=== PATIENT | male | born 1935 | race Caucasian/White ===

== ENCOUNTER → 2016-08-26 | Outpatient (CLI) | payer OTHER, MEDICARE | LOC: BHFA 13:00 | PROVIDERS: ATTEND Internal Medicine Cardiovascular Disease | DX: R07.9 Chest pain, unspecified (principal) | CPT/HCPCS: 78452; 93017; A9500; J2785 ==

== ENCOUNTER 2017-02-04 11:53 | Emergency (ER) | payer OTHER, MEDICARE ==
[2017-02-04 12:02] VITALS: O2SAT 97
--- NOTE | 2017-02-04 12:22 | CPEKG ---
Heart Rate: 61 RR Interval: 984 QRSD Interval: 96 QT Interval: 400 QTC Interval: 403 QRS [place]: 60 T Wave [place]: 39 EKG Severity - ABNORMAL ECG - EKG Impression: PROBABLE LATERAL INFARCT, OLD EKG Impression: Sinus rhythm Electronically Signed By: Justen Lenz 04-Feb-2017 12:55:14
[2017-02-04] MEDS ORDERED: LORazepam 2 MG/ML INJ IVP ONE (13:09)
[2017-02-04] MEDS ORDERED: DEXAMETHASONE 10 MG/ML VIAL IVP ONE (13:09)
[2017-02-04] MEDS ORDERED: ONDANSETRON 4 MG/2 ML VIAL IVP ONE (13:09)
[2017-02-04] MEDS ORDERED: MECLIZINE HCL 25 MG TAB PO ONE (13:10)
[2017-02-04 13:14] LABS: % IMMATURE GRANULYOCYTES 0.4 % (0.0-1.1); ABSOLUTE IMMATURE GRANULOCYTES 0.03 10^3/uL (0.00-0.10); ADD DIFF? NO; ADD MORPH? NO; ADD SCAN? NO; ATYPICAL LYMPHOCYTE FLAG 0 (0-99); FRAGMENT RBC FLAG 0 (0-99); HEMATOCRIT 47.1 % (40.0-51.0); HEMOGLOBIN 15.9 g/dL (13.7-17.5); LEFT SHIFT FLG 0 (0-99); LIPEMIA HEMOLYSIS FLAG 90 (0-99); MEAN CELL HEMOGLOBIN CONCENTR. 33.8 g/dL (32.4-36.7); MEAN CELL VOLUME 85.8 fL (81.5-99.8); MEAN PLATELET VOLUME 9.3 fL (8.7-11.7); PLATELET CLUMPS FLAG 0 (0-99); PLATELET COUNT 225 10^3/uL (150-400); RED BLOOD CELL COUNT 5.49 10^6/uL (4.40-6.38); RED CELL DISTRIBUTION WIDTH 13.3 % (11.5-15.2)
--- NOTE | 2017-02-04 13:14 | EDPHY ---
H & P Stated Complaint: dizzy Time Seen by Provider: 02/04/17 12:50 HPI/ROS: CHIEF COMPLAINT: Vertigo HISTORY OF PRESENT ILLNESS: The patient is a 81-year-old man who comes to the emergency department complaining of vertigo. The patient states that he woke up this morning with significant vertigo and difficulty walking. He states that it is persistent but worsens with head movement. Mild nausea but no vomiting. No fever. He does have some sinus congestion over the last couple of days. No headache. No neck pain. No chest pain. No shortness of breath. No syncope or presyncope. No weakness or deficits. REVIEW OF SYSTEMS: Constitutional: denies: chills, fever, recent illness, recent injury EENTM: denies: blurred vision, double vision, nose congestion Respiratory: denies: cough, shortness of breath Cardiac: denies: chest pain, irregular heart rate, lightheadedness, palpitations Gastrointestinal/Abdominal: denies: abdominal pain, diarrhea, nausea, vomiting, blood streaked stools Genitourinary: denies: dysuria, frequency, hematuria, pain Musculoskeletal: denies: joint pain, muscle pain Skin: denies: lesions, rash, jaundice, bruising Neurological: See HPI denies: headache, numbness, paresthesia, tingling, weakness Hematologic/Lymphatic: denies: blood clots, easy bleeding, easy bruising Immunologic/allergic: denies: HIV/AIDS, transplant EXAM: GENERAL: Well-appearing, well-nourished and in no acute distress. HEAD: Atraumatic, normocephalic. EYES: Pupils equal round and reactive to light, extraocular movements intact, sclera anicteric, conjunctiva are normal. ENT: TMs normal, nares patent, oropharynx clear without exudates. Moist mucous membranes. NECK: Normal range of motion, supple without lymphadenopathy or JVD. LUNGS: Breath sounds clear to auscultation bilaterally and equal. No wheezes rales or rhonchi. HEART: Regular rate and rhythm without murmurs, rubs or gallops. ABDOMEN: Soft, nontender, normoactive bowel sounds. No guarding, no rebound. No masses appreciated. BACK: No CVA tenderness, no spinal tenderness, step-offs or deformities EXTREMITIES: Normal range of motion, no pitting or edema. No clubbing or cyanosis. NEUROLOGICAL: Cranial nerves II through XII grossly intact. Normal speech, gait not assessed. 5/5 strength, normal movement in all extremities, normal sensation the patient does not have nystagmus on direct examination but does with the Hallpike maneuver to the left particularly rotational nystagmus and nausea. On head impulse testing as a normal exam which is not reassuring. His test of skew was normal which is reassuring. PSYCH: Normal mood, normal affect. SKIN: Warm, dry, normal turgor, no visible rashes or lesions. Source: Patient Exam Limitations: No limitations - Personal History Current Tetanus Diphtheria and Acellular Pertussis (TDAP): Yes Tetanus Vaccine Date: WITHIN 10 YRS - Medical/Surgical History Hx Asthma: No Hx Chronic Respiratory Disease: No Hx Diabetes: No Hx Cardiac Disease: No Hx Renal Disease: No Hx Cirrhosis: No Hx Alcoholism: No Hx HIV/AIDS: No Hx Splenectomy or Spleen Trauma: No Other PMH: appy, laproscopy, L3-L5 laminectomy, BPH, GERD, cardiac ablation - Family History Significant Family History: No pertinent family hx - Social History Smoking Status: Never smoked Alcohol Use: Sober Drug Use: None Constitutional: Initial Vital Signs Temperature (C) 36.7 C 02/04/17 11:58 Heart Rate 64 02/04/17 11:58 Respiratory Rate 18 02/04/17 11:58 Blood Pressure 154/90 H 02/04/17 11:58 O2 Sat (%) 97 02/04/17 11:58 O2 Delivery Mode Room Air Allergies/Adverse Reactions: ENVIRONMENTAL Allergy (Mild, Uncoded 01/14/13 15:57) NASAL CONGESTION Home Medications: Medication Instructions Recorded ATENOLOL 10/16/09 Aspirin EC [Aspirin EC 81 mg] 2 10/16/09 Ca Carbonate/Vit C/Vit D3/E/Mn 1 each PO 10/16/09 [Os-Los Ultra Tablet] LORAZEPAM 10/16/09 Multivitamins W-Minerals/Lut 10/16/09 [CENTRUM SILVER TABLET] ROSUVASTATIN CALCIUM [Crestor] 10 mg PO 10/16/09 Sertraline HCl 10/16/09 Tamsulosin HCl [Flomax] 0.4 mg PO DAILY8 10/16/09 Triamterene/Hydrochlorothiazid 10/16/09 [MAXZIDE 37.5 MG-25 MG TABLET] Zantac 10/16/09 amLODIPine BESYLATE [Norvasc 5mg] 5 mg PO DAILY 10/16/09 Cyclobenzaprine Hcl [Flexeril 5 MG 5 mg PO TIDPRN #13 tab 12/03/11 (RX)] Omeprazole Magnesium [Prilosec Otc] 20 mg PO 12/03/11 Meclizine HCl [Meclizine HCl 25 mg 25 mg PO BID PRN #20 tab 02/04/17 (RX,OTC)] Medical Decision Making - Diagnostics Imaging Results: Imaging Impressions Brain MRI 02/04/17 13:09 Impression: 1. No acute ischemia or intracranial hemorrhage. 2. Atrophy and mild nonspecific white matter disease. Findings discussed with Emergency Department physician, Dr. Justen Lezn on February 04, 2017 at 1507 hours. ED Course/Re-evaluation: The patient is well-appearing has full no focal deficits however his age and the consistency of his symptoms as well as the normal head impulse testing is concerning. The positive Hallpike maneuver is reassuring. I will order an MRI to rule out central cause. I will begin treatment for what is likely a peripheral cause. 3:05 p.m. we discussed the MRI results which are reassuring. The patient is just now receiving his medications. He is very relieved. 3:45 p.m. the patient is feeling much better and wishes to go home. His is here to drive him. They declined further workup. They will follow up with ENT. He requests prescription for meclizine. We discussed indications for returning. Differential Diagnosis: Partial list of the Differential diagnosis considered include but were not limited to; central vertigo, peripheral vertigo, labyrinthitis, and although unlikely based on the history and physical exam, I also considered tumor, CVA, dissection. I discussed these differential diagnoses and the plan with the patient as well as the usual and expected course. The patient understands that the diagnosis is provisional and that in medicine we are not always correct and that further workup is often warranted. Usual and customary warnings were given. All of the patient's questions were answered. The patient was instructed to return to the emergency department should the symptoms at all worsen or return, otherwise to followup with the physician as we discussed. - Data Points Laboratory Results: Laboratory Results 02/04/17 12:40 02/04/17 12:40 02/04/17 02/04/17 12:40 12:40 WBC 8.46 10^3/uL 10^3/uL (3.80-9.50) RBC 5.49 10^6/uL 10^6/uL (4.40-6.38) Hgb 15.9 g/dL g/dL (13.7-17.5) Hct 47.1 % % (40.0-51.0) MCV 85.8 fL fL (81.5-99.8) MCH 29.0 pg pg (27.9-34.1) MCHC 33.8 g/dL g/dL (32.4-36.7) RDW 13.3 % % (11.5-15.2) Plt Count 225 10^3/uL 10^3/uL (150-400) MPV 9.3 fL fL (8.7-11.7) Neut % (Auto) 71.1 % % (39.3-74.2) Lymph % (Auto) 15.5 % % (15.0-45.0) Collin % (Auto) 10.6 % % (4.5-13.0) Eos % (Auto) 1.7 % % (0.6-7.6) Baso % (Auto) 0.7 % % (0.3-1.7) Nucleat RBC Rel Count 0.0 % % (0.0-0.2) Absolute Neuts (auto) 6.02 10^3/uL 10^3/uL (1.70-6.50) Absolute Lymphs (auto) 1.31 10^3/uL 10^3/uL (1.00-3.00) Absolute Monos (auto) 0.90 10^3/uL H 10^3/uL (0.30-0.80) Absolute Eos (auto) 0.14 10^3/uL 10^3/uL (0.03-0.40) Absolute Basos (auto) 0.06 10^3/uL 10^3/uL (0.02-0.10) Absolute Nucleated RBC 0.00 10^3/uL 10^3/uL (0-0.01) Immature Gran % 0.4 % % (0.0-1.1) Immature Gran # 0.03 10^3/uL 10^3/uL (0.00-0.10) Sodium 133 mEq/L L mEq/L (134-144) Potassium 4.0 mEq/L mEq/L (3.5-5.2) Chloride 93 mEq/L L mEq/L (97-110) Carbon Dioxide 31 mEq/l mEq/l (22-31) Anion Gap 9 mEq/L mEq/L (8-16) BUN 18 mg/dL mg/dL (7-23) Creatinine 1.1 mg/dL mg/dL (0.7-1.3) Estimated GFR > 60 Glucose 104 mg/dL H mg/dL (70-100) Calcium 10.0 mg/dL mg/dL (8.5-10.4) Medications Given: Discontinued Medications Dexamethasone (Decadron Injection) 10 mg IVP EDNOW ONE Stop: 02/04/17 13:10 Last Admin: 02/04/17 15:00 Dose: 10 mg Lorazepam (Ativan Injection) 0.5 mg IVP EDNOW ONE Stop: 02/04/17 13:10 Last Admin: 02/04/17 15:00 Dose: 0.5 mg Meclizine HCl (Meclizine Hcl) 50 mg PO EDNOW ONE Stop: 02/04/17 13:11 Last Admin: 02/04/17 15:00 Dose: 50 mg Ondansetron HCl (Zofran) 4 mg IVP EDNOW ONE Stop: 02/04/17 13:10 Last Admin: 02/04/17 15:24 Dose: Not Given Departure - Departure Disposition: Home, Routine, Self-Care Clinical Impression: Vertigo Condition: Fair Instructions: Vertigo (ED) Referrals: Johnathan Miles MD [Primary Care Provider] - As per Instructions Bogdan West MD [Medical Doctor] - As per Instructions Prescriptions: Meclizine HCl [Meclizine HCl 25 mg (RX,OTC)] 25 mg PO BID PRN #20 tab PRN Reason: Vertigo
[2017-02-04 13:20] LABS: ANION GAP 9 mEq/L (8-16); CARBON DIOXIDE 31 mEq/l (22-31); CHLORIDE 93 mEq/L (97-110); CREATININE 1.1 mg/dL (0.7-1.3); GLOMERULAR FILTRATION RATE > 60; GLUCOSE 104 mg/dL (70-100); SODIUM 133 mEq/L (134-144)
[2017-02-04 16:03] VITALS: BP 158/75; PULSE 81; RESP 16; TEMP 98.6
== END 2017-02-04 16:15 | disposition home or self-care (01) ==
DX: R42 Dizziness and giddiness (principal); Z79.82 Long term (current) use of aspirin
CPT/HCPCS: 70551; 93005; 96374; 96375; 99285; J1100; J2060; J2405

== ENCOUNTER 2017-10-24 10:02 | Emergency (ER) | payer OTHER, MEDICARE ==
--- NOTE | 2017-10-24 13:44 | EDPHY ---
H & P Stated Complaint: nntraumatic l hip pain /painful with wt bearing - Personal History Current Tetanus Diphtheria and Acellular Pertussis (TDAP): Yes Tetanus Vaccine Date: WITHIN 10 YRS - Medical/Surgical History Hx Asthma: No Hx Chronic Respiratory Disease: No Hx Diabetes: No Hx Cardiac Disease: No Hx Renal Disease: No Hx Cirrhosis: No Hx Alcoholism: No Hx HIV/AIDS: No Hx Splenectomy or Spleen Trauma: No Other PMH: appy, laproscopy, L3-L5 laminectomy, BPH, GERD, cardiac ablation - Social History Smoking Status: Never smoked Time Seen by Provider: 10/24/17 10:50 HPI/ROS: Chief Complaint: Leg pain, back pain HPI: 82-year-old male presenting with 2 days of severe left leg and back pain. Patient has a history of a lumbar stenosis in the past. He has been having severe pain when he attempts to ambulate the last 2 days. Denies pain at rest. Denies any falls or injuries. He is able to move his leg without any difficulty when he is lying down, no numbness or weakness. No difficulty urinating or having a bowel movement. No fevers or chills. No headache. No nausea or vomiting. No abdominal pain. No urinary urgency or frequency. ROS: 10 point Review of Systems is negative except as noted in the HPI. Social History: No smoking, no alcohol, no recreational drug use Family History: non-contributory Physical Exam: Gen: Awake, Alert, No Distress HEENT: Nose: no rhinorrhea Eyes: PERRLA, EOMI Mouth: Moist mucosa Neck: Supple, no JVD Chest: nontender, lungs clear to auscultation Heart: S1, S2 normal, no murmur Abd: Soft, non-tender, no guarding Back: no CVA tenderness, mild lower lumbar tenderness with greater left paraspinal and left gluteal tenderness on examination. This reproducing presenting complaint Ext: no edema, non-tender, is full range of motion with his bilateral lower extremities 2 passive range of motion without any pain or discomfort. He has no hip tenderness. No deformity. Sensations intact in all dermatomes. Capillary refills less than 2 sec. He has 2+ dorsalis pedis pulses. Normal perfusion. Skin: no rash Neuro: CN II-XII intact, Sensation grossly intact, Strength 5/5 in bilateral upper and lower extremities ([place]) Constitutional: Initial Vital Signs Temperature (C) 36.5 C 10/24/17 10:12 Heart Rate 72 10/24/17 10:12 Respiratory Rate 16 10/24/17 10:12 Blood Pressure 132/75 H 10/24/17 10:12 O2 Sat (%) 93 10/24/17 10:12 O2 Delivery Mode Room Air Allergies/Adverse Reactions: ENVIRONMENTAL Allergy (Mild, Uncoded 10/24/17 10:12) NASAL CONGESTION Home Medications: Medication Instructions Recorded ATENOLOL 10/16/09 Aspirin EC [Aspirin EC 81 mg] 2 10/16/09 Ca Carbonate/Vit C/Vit D3/E/Mn 1 each PO 10/16/09 [Os-Los Ultra Tablet] LORAZEPAM 10/16/09 Multivitamins W-Minerals/Lut 10/16/09 [CENTRUM SILVER TABLET] ROSUVASTATIN CALCIUM [Crestor] 10 mg PO 10/16/09 Sertraline HCl 10/16/09 Tamsulosin HCl [Flomax] 0.4 mg PO DAILY8 10/16/09 Triamterene/Hydrochlorothiazid 10/16/09 [MAXZIDE 37.5 MG-25 MG TABLET] Zantac 10/16/09 amLODIPine BESYLATE [Norvasc 5mg] 5 mg PO DAILY 10/16/09 Cyclobenzaprine Hcl [Flexeril 5 MG 5 mg PO TIDPRN #13 tab 12/03/11 (RX)] Omeprazole Magnesium [Prilosec Otc] 20 mg PO 12/03/11 Meclizine HCl [Meclizine HCl 25 mg 25 mg PO BID PRN #20 tab 02/04/17 (RX,OTC)] methylPREDNISolone [Medrol Dose 4 mg PO DAILY #1 ea 10/24/17 Graeme] oxyCODONE/APAP 5/325 [Percocet 1 - 2 tab PO Q4H PRN #10 tab 10/24/17 5/325 (RX)] Medical Decision Making ED Course/Re-evaluation: 10-year-old with the left low back pain and leg pain. His no reversible pain with full range of motion. L-spine x-ray shows some spondylolisthesis. Pain is likely hip joint in origin. There is no fractures. Given his neurologic history and findings will obtain MRI L-spine . Patient signed out to Dr. Jaimes pending MRI results. (CandelarioPapo Hernández) Other Provider: I assumed care of this patient at 3:00 p.m.. At that time the results of his MRI L-spine were pending. I was called by Dr. Moreno at 3:15 p.m. With these results. He reports degenerative disease below the L4 level. There is bilateral foraminal stenosis with severe left L4-5 foraminal stenosis. Please see formal report. Results of the MRI scan were relayed to the patient and his . He was seen in the emergency department by Dr. Abbie Browne of Neurosurgery. He will be started on a Medrol Dosepak and neurosurgical follow-up has been arranged. Danger signs reviewed with the patient. He is discharged from the department in stable condition. (Nelsy Jaimes) - Data Points Medications Given: Discontinued Medications Ibuprofen (Motrin) 600 mg PO EDNOW ONE Stop: 10/24/17 15:39 Last Admin: 10/24/17 15:41 Dose: 600 mg Departure - Departure Disposition: Home, Routine, Self-Care Clinical Impression: Lumbar radiculopathy, acute Condition: Good Instructions: Lumbar Radiculopathy (ED) Additional Instructions: Follow up with Dr. Browne on , day after tomorrow, as planned. Take the Medrol Dosepak as prescribed. You can use the Percocet if needed for severe pain. Remember that it is an opiate pain medication and will make you sleepy, possibly off balance, and possibly confused. Do not drink alcohol or drive a car while taking this medication. Each Percocet contains 325 mg of Tylenol. Do not take more than 3000 mg of Tylenol in a 24 hr time period. Referrals: Roxana Pruitt MD [Primary Care Provider] - As per Instructions Abbie Browne MD [Medical Doctor] - As per Instructions Prescriptions: methylPREDNISolone [Medrol Dose Graeme] 4 mg PO DAILY #1 ea oxyCODONE/APAP 5/325 [Percocet 5/325 (RX)] 1 - 2 tab PO Q4H PRN #10 tab PRN Reason: Pain, Severe
[2017-10-24] MEDS ORDERED: IBUPROFEN 600 MG TAB PO ONE (15:38)
[2017-10-24 16:59] VITALS: BP 135/89
== END 2017-10-24 16:58 | disposition home or self-care (01) ==
DX: M54.16 Radiculopathy, lumbar region (principal); Z79.82 Long term (current) use of aspirin

== ENCOUNTER → 2018-01-08 | Outpatient (CLI) | payer OTHER, MEDICARE | LOC: BHCLAF 09:15 | PROVIDERS: ATTEND Internal Medicine Cardiovascular Disease | DX: Z01.810 Encounter for preprocedural cardiovascular examination (principal); R07.9 Chest pain, unspecified | CPT/HCPCS: 93306-PO ==

== ENCOUNTER 2018-01-17 07:30 | Observation (INO) | payer OTHER, MEDICARE ==
--- NOTE | 2018-01-17 06:42 | PDHPUP ---
History & Physical Update H&P update statement: This history and physical update is based on an assessment of the patient which was completed after admission or registration (within 24 hours), but prior to the surgery/procedure. H&P update: H&P reviewed & patient examined, no change in patient's condition since H&P completed
[2018-01-17] MEDS ORDERED: ceFAZolin 2 GM/DEXTROSE 100 ML IV ONE (08:30)
[2018-01-17] MEDS ORDERED: LIDOCAINE 1% 2 ML INJ ID PRN (08:30)
[2018-01-17] MEDS ORDERED: GABAPENTIN 300 MG CAP PO ONE (08:30)
[2018-01-17] MEDS ORDERED: LR 1,000 ML IV ONE (08:30)
[2018-01-17] MEDS ORDERED: ACETAMINOPHEN 500 MG TAB PO ONE (08:30)
[2018-01-17] MEDS ORDERED: LIDOCAINE 1% 2 ML INJ ONE (08:43)
[2018-01-17] MEDS ORDERED: GABAPENTIN 100 MG CAP PO SCH (09:00)
[2018-01-17] MEDS ORDERED: ALBUTEROL 60 PUFFS/8 GM MDI IH PRN (09:46)
[2018-01-17] MEDS ORDERED: BISACODYL 10 MG SUPP PR PRN (09:48)
[2018-01-17] MEDS ORDERED: HYDROmorphone HCL 0.5 MG/0.5 ML SYR IVP PRN (09:48)
[2018-01-17] MEDS ORDERED: oxyCODONE IR 5 MG TAB PO PRN (09:48)
[2018-01-17] MEDS ORDERED: LACTULOSE 20 GM/30 ML UDCUP PO PRN (09:48)
[2018-01-17] MEDS ORDERED: ONDANSETRON DISINTEGRATING 4 MG TAB PO PRN (09:48)
[2018-01-17] MEDS ORDERED: MAGNESIUM HYDROXIDE 30 ML UDCUP PO PRN (09:48)
[2018-01-17] MEDS ORDERED: diphenhydrAMINE 25 MG CAP PO PRN (09:48)
[2018-01-17] MEDS ORDERED: POLYETHYLENE GLYCOL 3350 17 GM PKT PO PRN (09:48)
[2018-01-17] MEDS ORDERED: ONDANSETRON 4 MG/2 ML VIAL IVP PRN ×2 (09:48→11:40)
[2018-01-17] MEDS ORDERED: DEPO METHYLPREDNISOLONE 40 MG/ML SDV ONE ×2 (09:50→10:54)
[2018-01-17] MEDS ORDERED: THROMBIN (BOVINE) 5,000 UNIT VIAL TP ONE (09:50)
[2018-01-17] MEDS ORDERED: EPINEPHrine 1 MG/ML INJ ONE (09:50)
[2018-01-17] MEDS ORDERED: BUPIVACAINE 0.25% 30 ML SDV ONE (09:50)
[2018-01-17] MEDS ORDERED: CHLORHEXIDINE GLUC HIBICLENS 118 ML BTL TP ONE (09:50)
[2018-01-17] MEDS ORDERED: BACITRACIN 50,000 UNITS/10 ML SYR IRR ONE (09:51)
[2018-01-17] MEDS ORDERED: MIDAZOLAM 2 MG/2 ML VIAL ONE (10:00)
[2018-01-17] MEDS ORDERED: NS 1,000 ML IV SCH (10:00)
[2018-01-17] MEDS ORDERED: MIDAZOLAM 2 MG/2 ML VIAL IVP ONE (10:04)
--- NOTE | 2018-01-17 10:06 | PDANEPAE ---
ANE History of Present Illness l4l5 stenosis ANE Past Medical History - Cardiovascular History Hx Hypertension: Yes Hx Arrhythmias: No Hx Chest Pain: No Hx Coronary Artery / Peripheral Vascular Disease: No Hx CHF / Valvular Disease: No Hx Palpitations: Yes Cardiovascular History Comment: HEART IRREGULARITY HAD ABLATION. INTERMITTENT PALPITATIONS - Pulmonary History Hx COPD: No Hx Asthma/Reactive Airway Disease: Yes Hx Recent Upper Respiratory Infection: No Hx Oxygen in Use at Home: No Hx Sleep Apnea: No Sleep Apnea Screening Result - Last Documented: Positive Pulmonary History Comment: SLIGHT WHEEZING WAS GIVEN INHALER 12/27/17 NO TRIGGERS KNOWN - Neurologic History Hx Cerebrovascular Accident: No Hx Seizures: No Hx Dementia: No - Endocrine History Hx Diabetes: No - Renal History Hx Renal Disorders: Yes Renal History Comment: BPH - Liver History Hx Hepatic Disorders: No - Neurological & Psychiatric Hx Hx Neurological and Psychiatric Disorders: Yes Neurological / Psychiatric History Comment: ANXIETY - Cancer History Hx Cancer: Yes Cancer History Comment: SKIN - Congenital Disorder History Hx Congenital Disorders: No - GI History Hx Gastrointestinal Disorders: Yes Gastrointestinal History Comment: GERD - Other Health History Other Health History: HAS CATARACTS. OSTEOARTHRITIS. ALLERGIC RHINITIS. LUMBAR STENOSIS. N/T LT LEG&FOOT - Chronic Pain History Chronic Pain: Yes (LOWER LUMBAR) - Surgical History Prior Surgeries: LUMBAR LAMINECTOMY. APPENDECTOMY. HERNIA ANE Review of Systems Review of Systems: - Exercise capacity METS (RN): 3 METS ANE Patient History - Allergies Allergies/Adverse Reactions: ENVIRONMENTAL Allergy (Mild, Uncoded 10/24/17 10:12) NASAL CONGESTION - Home Medications Home Medications: Alfuzosin HCl [Alfuzosin HCl ER] 10 mg PO DAILY 12/26/17 [Last Taken 01/17/18] Aspirin EC [Aspirin EC 81 mg (*)] 81 mg PO DAILY 12/26/17 [Last Taken 1 Week Ago ~01/10/18] Carvedilol [Coreg (*)] 25 mg PO BIDMEAL 12/26/17 [Last Taken 01/17/18] Citalopram Hydrobromide [Celexa] 20 mg PO DAILY 12/26/17 [Last Taken 01/17/18] Finasteride [Proscar 5 MG (*)] 5 mg PO HS 12/26/17 [Last Taken 1 Day Ago ~] Gabapentin [Neurontin 100 MG (*)] 100 mg PO TID 12/26/17 [Last Taken 01/17/18] LORazepam [Ativan (*)] 1 mg PO BID PRN 12/26/17 [Last Taken 1 Day Ago ~01/16/18] Omeprazole 20 mg PO DAILY 12/26/17 [Last Taken 01/17/18] Ranitidine HCl [Zantac] 150 mg PO BIDMEAL 12/26/17 [Last Taken 1 Day Ago ~] Rosuvastatin Calcium [Crestor 10mg (RX)] 10 mg PO DAILY@18 12/26/17 [Last Taken 1 Day Ago ~01/16/18] Triamterene/Hctz 37.5/25 [Maxzide-25 (*)] 1 tab PO DAILY 12/26/17 [Last Taken 1 Day Ago ~01/16/18] amLODIPine BESYLATE [Norvasc 5 mg (*)] 5 mg PO DAILY 12/26/17 [Last Taken ] Albuterol [Proventil Inhaler HFA (*)] 1 - 2 puffs IH DAILY PRN 12/29/17 [Last Taken 01/17/18] - NPO status NPO Since - Liquids (Date): 01/17/18 NPO Since - Liquids (Time): 06:00 NPO Since - Solids (Date): 01/16/18 NPO Since - Solids (Time): 20:00 - Smoking Hx Smoking Status: Never smoked ANE Labs/Vital Signs - Vital Signs Blood Pressure: 163/84 Heart Rate: 72 Respiratory Rate: 16 O2 Sat (%): 92 Height: 171.45 cm Weight: 77.111 kg ANE Physical Exam - Airway Neck exam: FROM Mallampati Score: Class 1 Mouth exam: normal dental/mouth exam - Pulmonary Pulmonary: no respiratory distress - Cardiovascular Cardiovascular: regular rate and rhythym - ASA Status ASA Status: III ANE Anesthesia Plan Anesthesia Plan: general endotracheal anesthesia
[2018-01-17] MEDS ORDERED: ROCURONIUM 50 MG/5 ML VIAL ONE (10:13)
[2018-01-17] MEDS ORDERED: PROPOFOL 200 MG/20 ML VIAL ONE (10:13)
[2018-01-17] MEDS ORDERED: fentaNYL 100 MCG/2 ML INJ ONE ×2 (10:13)
[2018-01-17] MEDS ORDERED: DEXAMETHASONE 4 MG/ML VIAL ONE (10:48)
[2018-01-17] MEDS ORDERED: ePHEDrine SULFATE 25 MG/5 ML SYR ONE ×2 (10:48)
[2018-01-17] MEDS ORDERED: ONDANSETRON 4 MG/2 ML VIAL ONE (10:48)
[2018-01-17] MEDS ORDERED: PHENYLEPHRINE HCL 100 MCG/ML SYR ONE (10:48)
[2018-01-17] MEDS ORDERED: LIDOCAINE 2% 2 ML INJ ONE (10:49)
[2018-01-17] MEDS ORDERED: DEXAMETHASONE 4 MG/ML VIAL IVP PRN (11:40)
[2018-01-17] MEDS ORDERED: PROMETHAZINE HCL 25 MG/ML INJ IVP PRN (11:40)
[2018-01-17] MEDS ORDERED: fentaNYL 100 MCG/2 ML INJ IVP PRN (11:40)
[2018-01-17] MEDS ORDERED: HYDROmorphONE/DILAUDID 2 MG/ML INJ IVP PRN (11:40)
[2018-01-17] MEDS ORDERED: MEPERIDINE 25 MG/0.5 ML AMP IVP PRN (11:40)
[2018-01-17] MEDS ORDERED: NALOXONE HCL 0.4 MG/ML INJ IVP PRN (11:40)
[2018-01-17] MEDS ORDERED: DIAZEPAM 5 MG/ML 1 ML SYR IVP PRN (11:40)
--- NOTE | 2018-01-17 12:10 | POSTANESTH ---
Post Anesthetic Evaluation Cardiovascular Status: Normal, Stable Respiratory Status: Normal, Stable Level of Consciousness/Mental Status: Can Participate in Eval Pain Control: Adequate, Prn Tx Ordered Nausea/Vomiting Control: Adequate, Prn Tx Ordered Complications Possibly Related to Anesthesia: None Noted
--- NOTE | 2018-01-17 12:37 | POSTOPPROG ---
Post Op Note Date of Operation: 01/17/18 Surgeon: Abbie Browne Financial Reporting Manager: RAFAELA Bonilla Anesthesiologist: MD Lorraine Anesthesia: GET(General Endotracheal), Local (Specify) Pre-op Diagnosis: lumbar stenosis L4/5 Post-op Diagnosis: lumbar stenosis L4/5 Indication: left leg pain, stenosis, radiculopathy Procedure: left L4/5 LRD Inf/Abcess present in the surg proc area at time of surgery?: No Depth: Deep Incisional (Fascial) EBL: 50-100 Complications: none
--- NOTE | 2018-01-17 12:39 | SOAPPROG ---
SOAP Progress Note Assessment/Plan: Post Op Visit: S: Awake and alert. NAD. Pt with expected lower back pain O: AFVSS/PERRLA/EOMI no droop CN 2-12 grossly intact +lt touch 5/5 BUE/BLE = CDI A/P: 82 yo male that is s/p left L4/5 LRD -orders in place -call with any questions or concerns -pt understands and agrees -PT/OT -no brace needed 01/17/18 12:37 Objective: Vital Signs Temp Pulse Resp BP Pulse Ox 36.6 C 78 20 134/102 H 97 01/17/18 12:19 01/17/18 12:19 01/17/18 12:31 01/17/18 12:31 01/17/18 12:31 ICD10 Worksheet Patient Problems: Problems Problem Status Onset Lumbar radicular pain Acute Lumbar stenosis Acute - ICD10 Problem Qualifiers (1) Lumbar stenosis Qualifiers: Neurogenic claudication status: unspecified Qualified Code(s): M48.061 - Spinal stenosis, lumbar region without neurogenic claudication (2) Lumbar radicular pain
--- NOTE | 2018-01-17 13:12 | GOP ---
DATE OF OPERATION: 01/17/2018 SURGEON: Biju Browne MD NEUROSURGEON: Biju Browne MD. LIQUOR DEPARTMENT MANAGER: Naveed Bonilla PA-C. PREOPERATIVE DIAGNOSIS: Spondylolisthesis L4-L5, severe stenosis L4-L5, left L5 radiculopathy, lumba r degenerative disk disease, and prior surgery L5-S1. POSTOPERATIVE DIAGNOSIS: Spondylolisthesis L4-L5, severe stenosis L4-L5, left L5 radiculopathy, lumb ar degenerative disk disease, and prior surgery L5-S1. PROCEDURE PERFORMED: Left L4-L5 hemilaminotomy, medial facetectomy, and left lateral recess decompre ssion ([id number], microscope). FINDINGS: ESTIMATED BLOOD LOSS: 20 cc. INDICATIONS: The patient is an 82-year-old who presented to the ER a couple of months ago with julian ble pain radiating into the left leg and his MRI demonstrated spondylolisthesis at L4-L5 with severe stenosis at that level. He also had a small subligamentous disk protrusion on the left at L4-L5, but his principal source of compression was not the disk; however, it was due to facet arthropathy and s pondylolisthesis. There was also left foraminal stenosis L4 nerve root. Naturally, fusion is a more successful surgery for this type of approach, but he was of relatively advanced age and re ally did not want to have lumbar fusion. He did not have remarkable dynamic instability on flexion-e xtension x-rays. I thought there was a chance that a simple decompression alone could work. The ris ks of continued symptoms, nerve injury, spinal fluid leak were discussed. He understood these risks and wanted to proceed. He knew that if this did work we would also always consider more extensive esparza rgery to including L4-L5 and possibly L4-L5-S1 fusion. DESCRIPTION OF PROCEDURE: The patient was taken to the operating room and placed in the supine posit ion. General anesthesia was begun. He was flipped prone onto the Pravin frame. Care was taken to p ad all points of contact. His back was sterilely prepped and draped in the usual fashion. A localiz ing x-ray was taken. We made a 2 cm incision above the L4-L5 interspace. The subcutaneous tissue wa s dissected using Bovie cautery down through the fascia and a subperiosteal dissection was made down the left L4-L5 lamina. A self-retaining retractor was placed. A localizing x-ray was taken. We reva t a localizing x-ray; and, under the microscope, we drilled a left L4-L5 hemilaminotomy with medial f acetectomy and removed the very rostral portion of the L5 lamina on the left-hand side, unroofed the L5 root, and then followed it rostrally. There was a large amount of facet arthropathy compressing n ow the L5 root. We then saw the indented hourglass sign of the dura just above the L5 pedicle. We d ecompressed from the lower 3rd of the L5 pedicle all the way up above the L4-L5 disk. We then swept the L5 nerve root medially and looked underneath the nerve. There was no evidence of any compressive lesion. I could not fish out any of the rostral disk fragment at L4-L5 and I did not think anything was compressing it. We irrigated with antibiotic saline solution after he had an x-ray. We then pl aced Depo-Medrol over the left L5 root and then closed the incision in multiple layers using Vicryl s utures. A running PDS was placed in the skin itself. The patient was reversed from anesthesia, extu bated, and transferred to the recovery room in stable condition. There were no complications. COMPLICATIONS: None. /[id number]/MODL
[2018-01-17] MEDS ORDERED: GABAPENTIN 300 MG CAP PO SCH (14:00)
[2018-01-17] MEDS: CARVEDILOL 25 MG TAB PO SCH ×2 (14:06→17:39)
[2018-01-17] MEDS: amLODIPine BESYLATE 5 MG TAB PO SCH (14:07)
[2018-01-17] MEDS: ACETAMINOPHEN 500 MG TAB PO SCH ×2 (14:17→23:30)
[2018-01-17] MEDS: (Alfuzosin Hcl [Alfuzosin Hcl Er] 10 MG) PO SCH (14:21)
[2018-01-17] MEDS: TRIAMTERENE/HCTZ 37.5/25 1 EACH TAB PO SCH (16:32)
[2018-01-17] MEDS: LORazepam 1 MG TAB PO PRN (16:32)
[2018-01-17] MEDS: GABAPENTIN 300 MG CAP PO SCH ×2 (16:32→20:27)
[2018-01-17] MEDS: ceFAZolin 2 GM/DEXTROSE 100 ML IV SCH (17:39)
[2018-01-17] MEDS ORDERED: ROSUVASTATIN CALCIUM 10 MG TAB PO SCH (18:00)
[2018-01-17] MEDS: SENNOSIDES/DOCUSATE SODIUM TAB PO SCH (20:27)
[2018-01-17] MEDS: FAMOTIDINE 20 MG TAB PO SCH (20:27)
[2018-01-17] MEDS ORDERED: FINASTERIDE 5 MG TAB PO SCH (21:00)
[2018-01-17] MEDS ORDERED: MELATONIN 3 MG TAB PO PRN (21:00)
[2018-01-18] MEDS: LORazepam 1 MG TAB PO PRN ×2 (00:19→08:11)
[2018-01-18] MEDS: ceFAZolin 2 GM/DEXTROSE 100 ML IV SCH (01:47)
[2018-01-18] MEDS: ACETAMINOPHEN 500 MG TAB PO SCH ×2 (05:50→13:34)
[2018-01-18 07:34] VITALS: BP 113/53
[2018-01-18] MEDS: TRIAMTERENE/HCTZ 37.5/25 1 EACH TAB PO SCH (08:02)
[2018-01-18] MEDS: FAMOTIDINE 20 MG TAB PO SCH (08:04)
[2018-01-18] MEDS: amLODIPine BESYLATE 5 MG TAB PO SCH (08:05)
[2018-01-18] MEDS: CARVEDILOL 25 MG TAB PO SCH (08:05)
[2018-01-18] MEDS: GABAPENTIN 300 MG CAP PO SCH (08:06)
[2018-01-18] MEDS: SENNOSIDES/DOCUSATE SODIUM TAB PO SCH (08:06)
--- NOTE | 2018-01-18 08:19 | NEUSURGPN ---
Date of Surgery: 01/17/18 Post Op Day: 1 Assessment/Plan: Assessment: 82 yo male that is s/p left L4/5 LRD POD #1 Plan: -s/p left L4/5 LRD-doing ok this am, pt with some expected lower back pain -PT/OT-CPM -pain control with current plan -orders in place -call with any questions or concerns -pt understands and agrees -plan for dc later today if passes therapies -no brace needed -pt seen by Dr Browne as well -plan for removal of colon and then ensure voids prior to dc today Subjective: Awake and alert. NAD. Eating/drinking and voiding. No f/c/n/v/d. Objective: AFVSS/PERRLA/EOMI no droop CN 2-12 grossly intact +lt touch 5/5 BUE/BLE = CDI Neuro Check Frequency: per routine Urinary Catheter in Place: Yes Urinary Catheter Indication: Urinary Tract Obstruction Catheter Insertion Date: 01/17/18 - Physician Discussed Patient with : Pavan Patient Seen by : Pavan Neurosurgery Physical Exam - Vitals, I&O, Labs I and O 01/17/18 01/18/18 01/19/18 05:59 05:59 05:59 Intake Total 2632 Output Total 1750 Balance 882 Weight 77.111 kg Intake: Oral (ml) 880 IV Intake (ml) 750 IV Infused (ml) 1002 Ns 1,000 ml @ 75 mls/hr 802 IV CONT LAURA Rx#: [id number] ceFAZolin 2 GM/DEXTROSE 200 100 ml @ 200 mls/hr IV Q8H LAURA Rx#:[id number] Output: Urine (ml) 1700 Catheter 1700 Estimated Blood Loss (ml) 50 Other: Intake Quantity Yes Sufficient Vital Signs Temp Pulse Resp BP Pulse Ox 36.8 C 64 16 113/53 L 97 01/18/18 07:31 01/18/18 07:31 01/18/18 07:31 01/18/18 07:31 01/18/18 07:31 ICD10 Worksheet Patient Problems: Problems Problem Status Onset Lumbar radicular pain Acute Lumbar stenosis Acute - ICD10 Problem Qualifiers (1) Lumbar stenosis Qualifiers: Neurogenic claudication status: unspecified Qualified Code(s): M48.061 - Spinal stenosis, lumbar region without neurogenic claudication (2) Lumbar radicular pain
[2018-01-18] MEDS: (Alfuzosin Hcl [Alfuzosin Hcl Er] 10 MG) PO SCH (08:24)
[2018-01-18] MEDS ORDERED: CITALOPRAM 20 MG TAB PO SCH (09:00)
[2018-01-18] MEDS ORDERED: PANTOPRAZOLE SODIUM 40 MG TAB PO SCH (09:00)
--- NOTE | 2018-01-18 09:50 | ASMTCASEMG ---
Living Arrangements What is your living Answers: With Spouse arrangement? Who do you live with? Type Of Residence What kind of residence do Answers: Apartment you live in? 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 Patient is scheduled for L4-5 LRD and hemitaminectomy for left leg pain with Dr. Browne. OT/PT have been ordered. D/C plan TBD. CM will follow. Date Signed: 01/18/2018 09:49 AM Electronically Signed By:Macy Matthews LCSW
[2018-01-20] MEDS ORDERED: ENOXAPARIN 40 MG/0.4 ML SYR SC SCH (09:00)
== END 2018-01-18 14:22 | disposition home or self-care (01) ==
LOC: F3N 08:09 → F2N 13:54
PROVIDERS: ADMIT Neurological Surgery; ATTEND Neurological Surgery
PROC: 01NB0ZZ Release Lumbar Nerve, Open Approach (ICD-10-PCS; principal; 2018-01-17 09:45)
PROC: 00NY0ZZ Release Lumbar Spinal Cord, Open Approach (ICD-10-PCS; principal; 2018-01-17 09:45)
DX: M48.061 Spinal stenosis, lumbar region without neurogenic claudication (principal); M43.16 Spondylolisthesis, lumbar region; M51.36 Other intervertebral disc degeneration, lumbar region; M54.16 Radiculopathy, lumbar region
CPT/HCPCS: 63047; 76001; 97116; 97161; 97166; G8978; G8979; G8987; G8988; G8989; J0171; J0690; J1030; J1100; J2250; J2370; J2405; J2704; J3010